=== PATIENT | male | born 1990 | race Two or more races ===

== ENCOUNTER → 2018-07-06 | Day surgery (SDC) | payer OTHER ==
[~2018-07-06] VITALS: Ht 170.2 cm; Wt 116.1 kg
[~2018-07-06] MED LIST: BUPIVAC MPF-EPI 0.5%-1:200000 30 ML VIAL. ONE; DEXAMETHASONE SOD PHOS 20 MG/5 ML VIAL. ONE; GLYCOPYRROLATE 1 MG/5 ML VIAL. ONE; HYDROmorphone 2 MG/ML VIAL IV PRN; LIDOCAINE 1% PF 2 ML VIAL. ID PRN; LIDOCAINE 2% PF Vial for OR 5 ML VIAL. ONE; MIDAZOLAM HCL/PF 2 MG/2 ML VIAL. ONE; MORPHINE SULFATE 2 MG/ML VIAL. IV PRN; NEOSTIGMINE METHYLSULFATE 5 MG/5 ML SYRINGE. ONE; ONDANSETRON PF 4 MG/2 ML VIAL. IV PRN; ONDANSETRON PF 4 MG/2 ML VIAL. ONE; OXYC1TAB15 PO; PROCHLORPERAZINE 10 MG/2 ML VIAL. IV PRN; PROPOFOL 20 ML IV ONE; RANI150T21 PO; ROCURONIUM 50 MG/5 ML VIAL. ONE; fentaNYL PF VIAL 100 MCG/2 ML VIAL IV PRN; fentaNYL PF VIAL 100 MCG/2 ML VIAL ONE; oxyCODONE/APAP 5/325 1 TAB TABLET PO ONE
[2018-07-06] MEDS: IV RINGERS,LACTATED 1000ML 1,000 ML IV SCH ×2 (10:07→13:26)
--- NOTE | 2018-07-06 13:02 | PDOC4 ---
Operative Note Operative Note Date: 07/06/2018 Preoperative diagnosis: Incisional hernia Postoperative diagnosis: Same Procedure: Robotic-assisted laparoscopic incisional hernia repair with mesh Surgeon: Tacos Dictation: Patient is a 28-year-old male who underwent a laparoscopic cholecystectomy I number years ago developed a hernia at his umbilical incision site hernia repair was performed but has returned. Procedure of robotic- assisted laparoscopic incisional hernia repair was explained to the patient in detail including bleeding infection injury to intra-abdominal contents possibly necessitating further open operations alternatives to this procedure also discussed with the patient who seemed understanding table verbal and written consent had a procedure performed. Patient was taken to the operating room placed in supine position general anesthesia was initiated once patient was sleeping in bed his abdomen was prepped and draped usual sterile fashion using ChloraPrep and area in the left upper quadrant was injected with quarter percent Marcaine with epinephrine incision was made with a blade scalpel and a 5 mm Visiport was placed under direct position into the abdomen pneumoperitoneum was created this point a 5 mm camera was placed within the abdomen which was inspected as noted to have a midline incisional hernia with incarcerated omentum A8 millimeter da Marco Antonio port was placed in the left mid abdomen a second 8 mm da Marco Antonio port was placed in the left lower abdomen and the 5 mm Visiport was changed out for 8 mm da Marco Antonio port in the left upper quadrant. Surgeon went to the robotic console using grasper and Endo Kassy scissors the incarcerated omentum was reduced from the hernia defect the hernia defect was then closed with a running nonabsorbable 20V lock suture. Then Bark ST mesh was then placed in the abdomen and sewn to the anterior abdominal wall with a running absorbable 20V lock suture. Once this was complete the pneumoperitoneum was reduced all ports removed all port sites were closed with 4 -0 subcuticular Monocryl Mastisol Steri-Strips and island dressings were applied. Patient was awakened and extubated in the operating room taken to recovery stable condition all sponge instrument needle counts listed as correct estimate blood loss 10 mL XAVIER JOHNSON MD Jul 06, 2018 13:02
--- NOTE | 2018-07-06 13:02 | DISCH ---
DISCHARGE INSTRUCTIONS Condition on Discharge Condition on Discharge: Stable Activity After Discharge Activity Instructions for Disc: Avoid exertion Other activity instructions: no lifting more than 20 pounds for 2 weeks Diet after Discharge Diet after Discharge: Regular Wound Incision Care Other wound/incision instructi: May shower in 24 hours Contacting the DRJames after DC Call your doctor for: If your condition worsens Follow-Up Follow up with: Dr. Johnson in 2 weeks XAVIER JOHNSON MD Jul 06, 2018 13:02
[2018-07-06] MEDS: fentaNYL PF VIAL 100 MCG/2 ML VIAL IV PRN ×4 (13:27→14:22)
[2018-07-06 15:10] VITALS: BP 110/69
== END | disposition home or self-care (01) ==
LOC: SURG 09:36
PROVIDERS: ATTEND Surgery
DX: K43.0 Incisional hernia with obstruction, without gangrene (principal); Z88.0 Allergy status to penicillin; Z90.49 Acquired absence of other specified parts of digestive tract; Z79.899 Other long term (current) drug therapy; Z72.89 Other problems related to lifestyle
CPT/HCPCS: 49655; A7015; C1781; J0780; J1100; J1956; J2001; J2250; J2405; J2704; J2710; J3010; J3490; S2900